=== PATIENT | male | born 1995 | race Native Hawaiian/Other Pacific Islander ===

== ENCOUNTER 2019-01-02 10:57 | Emergency (ER) | payer MEDICAID ==
[~2019-01-02] VITALS: Ht 182.9 cm; Wt 136.4 kg
[~2019-01-02 10:57] MED LIST: NOCURR
[2019-01-02] MEDS ORDERED: ADENOSINE 3 MG/ML 2 ML VIAL ONE (11:03)
[2019-01-02] MEDS ORDERED: SODIUM CHLORIDE 0.9% 1,000 ML IV ONE ×2 (11:15→12:15)
[2019-01-02] MEDS ORDERED: LevETIRAcetam 1,000 MG in DEXTROSE 5%-WATER 100 ML IV ONE (11:15)
[2019-01-02 11:36] LABS: ANION GAP 22 mmol/L (8-16); CALCIUM, TOTAL 8.6 mg/dL (8.8-10.5); CARBON DIOXIDE 15 mmol/L (22-29); CHLORIDE 103 mmol/L (98-107); CREATININE 1.36 mg/dL (0.60-1.30); GLOMERULAR FILTR. RATE CALC > 60 mL/min (>60); GLUCOSE,RANDOM 114 mg/dL (70-110); POTASSIUM 3.6 mmol/L (3.5-5.1); SODIUM SERUM 140 mmol/L (136-145); UREA NITROGEN, BLOOD 14 mg/dL (7-18)
[2019-01-02 11:57] LABS: AMPHET/METH SCREEN,URINE NEGATIVE (NEGATIVE); BARBITURATE SCREEN, URINE NEGATIVE (NEGATIVE); BENZODIAZEPINES SCREEN,URINE NEGATIVE (NEGATIVE); CANNABINOID SCREEN,URINE POSITIVE (NEGATIVE); COCAINE SCREEN,URINE NEGATIVE (NEGATIVE); METHADONE SCREEN, URINE NEGATIVE (NEGATIVE); OPIATE SCREEN,URINE NEGATIVE (NEGATIVE)
[2019-01-02 12:02] LABS: PHENCYCLIDINE SCREEN,URINE NEGATIVE (NEGATIVE)
[2019-01-02 13:36] VITALS: BP 122/85
== END 2019-01-02 13:39 | disposition home or self-care (01) ==
LOC: EMS 10:59
DX: G40.909 Epilepsy, unspecified, not intractable, without status epilepticus (principal); R00.0 Tachycardia, unspecified; F12.90 Cannabis use, unspecified, uncomplicated
CPT/HCPCS: 36415; 80048; 80307; 93005; 96365; 99291; G0480; J0712; J7030; J7060; J0153